=== PATIENT | female | born 1970 | race Caucasian/White ===

== ENCOUNTER 2022-11-09 05:52 | Day surgery (SDC) | payer OTHER ==
[~2022-11-09] VITALS: Ht 167.6 cm; Wt 104.5 kg
[2022-11-09] MEDS ORDERED: BENZOCAINE 20% 50 MCG/SPRAY 57 GM TP ONE (05:53)
[2022-11-09] MEDS ORDERED: LIDOCAINE 2% 11 ML JELLY TP ONE (05:53)
[2022-11-09] MEDS ORDERED: LIDOCAINE 4% 50 ML SOLUTION TP ONE (05:53)
[2022-11-09] MEDS ORDERED: ALBUTEROL SULFATE 2.5 MG/0.5 ML NEB SOLUTION NEB ONE (05:53)
[2022-11-09] MEDS ORDERED: SODIUM CHLORIDE 0.9% 1,000 ML ONE (06:13)
[2022-11-09] MEDS ORDERED: FLUT110H IH (06:33)
[2022-11-09] MEDS ORDERED: BECL10.6 IH (06:33)
[2022-11-09] MEDS ORDERED: DULO20CA71 PO (06:33)
[2022-11-09] MEDS ORDERED: FAMO20 PO (06:33)
[2022-11-09] MEDS ORDERED: MONT-35 PO (06:33)
[2022-11-09 06:46] LABS: COVID AG,FIA SOURCE NASAL SWAB
[2022-11-09] MEDS ORDERED: SODIUM CHLORIDE 0.9% 1,000 ML IV ONE (07:00)
[2022-11-09] MEDS ORDERED: MIDAZOLAM HCL 2 MG/2 ML VIAL ONE (07:31)
[2022-11-09] MEDS ORDERED: FentaNYL CITRATE PF 100 MCG/2 ML VIAL ONE (07:31)
[2022-11-09] MEDS ORDERED: MethylPREDNISolone SOD SUCC 40 MG/ML VIAL IVP ONE (09:30)
[2022-11-09] MEDS ORDERED: MethylPREDNISolone SOD SUCC 40 MG/ML VIAL ONE (09:32)
== END 2022-11-09 11:15 | disposition home or self-care (01) ==
LOC: SURGERY 05:52
PROVIDERS: ATTEND Internal Medicine Critical Care Medicine
DX: R05.3 Chronic cough (principal); R91.8 Other nonspecific abnormal finding of lung field; Z79.899 Other long term (current) drug therapy; Z98.890 Other specified postprocedural states
CPT/HCPCS: 88112; 87206; 87101; 87220; 87070; 31623; 31624; 94640; 71045; 87015; 87426; J3010; J2250; J2920; Q9967; J7030; C9803; J7613; Z7610